=== PATIENT | female | born 1975 | race Caucasian/White ===

== ENCOUNTER 2018-08-08 09:40 | Emergency (ER) | payer SELFPAY ==
[2018-08-08 09:46] VITALS: BP 134/90
[2018-08-08 10:42] LABS: PLATELET COUNT 317 10^3/uL (150-400)
--- NOTE | 2018-08-08 10:44 | EDPHY ---
General - History Smoking Status: Current every day smoker Time Seen by Provider: 08/08/18 10:17 Narrative: CHIEF COMPLAINT: Depressed, suicidal HISTORY OF PRESENT ILLNESS: Patient presents voluntarily with complaints of depression and feeling suicidal. She says over the past few weeks she has had increasing depression. Over the past 2 days she has felt suicidal. She has a plan of laying down on the train track, and leading a training run over her head. She expresses intent to do so. She is currently homeless. She states that this does not affect her thoughts, and that she has not yet because of that. She says that she is traveling to [place] and for personal reasons has become very depressed. She reports history of schizoaffective disorder and denies any medication for this. She reports previous suicide attempt in 2008 by aspirin overdose. She denies any attempt today. She denies any ingestion of alcohol or methamphetamine. She does report going to outside hospital last night with same complaint, and she reports they discharged her home with outpatient resources. No other associated complaints or modifying factors. PSYCHIATRIC DIAGNOSES: Schizoaffective PRIOR PSYCHIATRIC EVALUATIONS: Two thousand nine in [place] M1/DETAINER: 10:[address] Hampton REVIEW OF SYSTEMS: Ten systems reviewed and are negative unless otherwise noted in the HPI EXAMINATION General Appearance: Alert, no distress. Unkempt. Head: normocephalic, atraumatic Eyes: Pupils equal and round, no conjunctival pallor or injection ENT, Mouth: Mucous membranes moist Neck: Normal inspection, supple, non-tender Respiratory: Lungs are clear to auscultation Cardiovascular: Regular rate and rhythm Gastrointestinal: Abdomen is soft and nontender Back: non-tender, no bony abnormalities Neurological: A&O, nonfocal, normal gait Skin: Warm and dry. Superficial candidal type rash underneath bilateral breast. This was examined with female gold tooler (Silvia) at bedside. Extremities: Nontender, no pedal edema Psychiatric: Depressed mood and flat affect. Admits to suicidal ideation with a plan of letting a train when overhead. Denies substance abuse. Does use marijuana. DIFFERENTIAL DIAGNOSES: Including but not limited to suicidal ideation, depression, schizoaffective, schizophrenia, malingering MDM: 10:20 a.m. Depression with suicidal ideation with plan of "put my heads on the track and let a training run over my head." She does express intent to do so. She reports previous suicide attempt in 2008. She denies any methamphetamine or alcohol use recently. She is awake alert. No acute distress. She has been placed on an M1 hold. Cooperative thus far. 10:45 a.m. Notified by RN. Patient is also complaining of rash underneath both breasts. I have re-evaluated her with female gold tooler. There is evidence of candidiasis underneath each breast without any cellulitis, breakdown or abscess. 11:10 a.m. Patient is medically cleared at this time. Proceed with mental health evaluation. 1:00 p.m. Patient has been cleared and evaluated by mental health professionals. They recommend that she be discharged outpatient follow-up. They have a high concern for malingering. I do feel that she is reasonable for discharge, as does the attending physician Dr. Hampton. She will be discharged with outpatient resources, fdc resources and ED precautions. She is comfortable this plan and discharged home stable condition. SUPERVISION: Patient was independently examined, but I discussed the case with my secondary supervising physician Dr. Hampton ([facility]) - Objective Vital Signs: Initial Vital Signs Temperature (C) 97.7 F 08/08/18 09:42 Heart Rate 106 H 08/08/18 09:42 Respiratory Rate 16 08/08/18 09:42 Blood Pressure 134/90 H 08/08/18 09:42 O2 Sat (%) 93 08/08/18 09:42 O2 Delivery Mode Room Air Allergies/Adverse Reactions: No Known Allergies Allergy (Unverified 08/08/18 09:41) Home Medications: Medication Instructions Recorded NK [No Known Home Meds] 08/08/18 Laboratory Results: Laboratory Results 08/08/18 10:29 08/08/18 10:29 Medications Given: Discontinued Medications Nystatin (Mycostatin Oint 15gm) 1 latasha TP BID DAVID Stop: 09/07/18 11:14 Last Admin: 08/08/18 11:29 Dose: 1 latasha Departure - Departure Disposition: Home, Routine, Self-Care Clinical Impression: Passive suicidal ideations, Homeless Condition: Fair Referrals: [facility],. [Clinic] - As per Instructions [facility],. [Clinic] - As per Instructions
[2018-08-08] MEDS ORDERED: NYSTATIN 15 GM OINTMENT TP SCH (11:15)
--- NOTE | 2018-08-08 12:54 | ASMTTLCEVL ---
TLC Evaluation - Basic Information Evaluation Start Date and 08/08/2018 11:10 AM Time Hospital Status Answers: M1 Hold 72-hr M1 Hold Start Date 08/08/2018 10:18 AM and Time Patient statement Notes: I took a bus here from [place] yesterday. I slept outside last night. Narrative Notes: Pt is a 42 yo, , transient/homeless, unemployed and disabled female with reported past psychiatric history of schizoaffective disorder-bipolar type, initially self-presented to [facility] ED on a voluntary basis with chief complaint of feeling depressed for the past couple of weeks, having suicidal ideation over the past 2 days and considered plan of letting a train run over my head. Pt was placed on an M1 hold by ED provider which noted: Patient exhibits depressed mood, flat affect, and she admits suicidal ideation with plan to let a train run over my head. Reports previous suicide attempt in 2008. Pt reported leaving [place], [place] about 3 weeks ago via bus with plans to consider moving permanently to [place], [place]. She reported being in [place] for about 2 weeks then decided to take a bus back home to [place], [place]. She reported being in [place] for a couple of days. When pt arrived in the ED, she still had a patient wrist band from another hospital in [place] where she went seeking help for feelings of depression and medications. She was released from that hospital. She reported taking a bus to [place] yesterday and slept outside last night. Pt stated that her final travel destination plans were to take a bus back to [place], [place] where her parents reside and pt previously had resided. Pt stated she is on SSI income and is awaiting her SSI check. Pt stated not having current funds for bus fare back to [place], [place] but planned to phone her mother to try to make wire transfer arrangement of bus fare funds. Pt appeared unclean, disheveled and unkempt. She had tattoos on both arms. She appeared moderately obese. She was alert and oriented X 4. She denied any auditory/visual hallucinations or delusions. Her mood appeared sad/depressed due to having exhausted her financial resources to continue her bus trip back to [place], [place]. She appeared to have over-exaggerated her response on the Hardy questionnaires, scoring a maximum on the BDI and near maximum on the BSS. Diagnosis History Notes: By pt report, Schizoaffective disorder-bipolar type. Prior suicide attempts Notes: Pt reported history of one prior suicide attempt in 2008 in which she took an overdose of aspirin. Prior hospitalizations Notes: Pt reported being hospitalized at [facility] in [place], [place] following her suicide attempt. Treatment Responses Notes: Pt reported not being on any medications in a long time. History of violence Notes: Pt denied any past history of aggression/violence. Therapist: None. Psychiatrist: None. Medications (name, dosage, route, freq uency) Notes: None. Pt reported not being on any medications in a long time. Allergies/Reaction Notes: NKDA. Sleep Notes: Decreased sleep reported. Appetite Notes: WNL. Pt appeared moderately obese. Medical/Surgical history Notes: Noncontributory other than ED provider report of pt complaint of rash under her breasts and evidence of candidiasis underneath each breast without any cellulitis, breakdown or abscess. Substance use history (frequency, intensity, his tory, duration) Notes: Pt reported having first tried alcohol at age 14. She reported she typically will consume alcohol on a weekly basis, usually 4 glasses of wine. She reported last having alcohol yesterday and drank some Vodka last night. She reported she first tried marijuana at age 20. She reported she rarely smokes marijuana and may use it monthly, with last reported use being yesterday evening. She reported past history of use of cocaine, meth, heroin, LSD, and Ecstacy but denied any use of any of these substances in over 10 years. BAL was zero. UDS results negative for all tested substances. Family composition Notes: Pt reported that her parents are and reside in [place], [place]. She has a 38 yo brother and a 39 yo sister also living in [place]. Need for family Answers: No participation in patient's care Family psychiatric/substance abuse history Notes: Pt denied any family history of mental illness/substance abuse problems. She denied any family history of suicide attempts/completions. Developmental history Notes: Pt reported being born in [place], [place] and grew up in several locations due to father being in the . She reported moving from [place] to [place], then to [facility], then to [place], then to [place], [place], then to [place], [place]. She denied having any learning challenges during childhood. She denied any childhood history of TBIs, LOC or concussions. She denied any childhood history of physical, emotional or sexual abuse/trauma. Abuse concerns Answers: None Marital status/children Notes: Pt reported having been for two years from 1999 to 2001, then . She reported she has an 18 yo daughter that pts parents raised. Living situation Notes: Pt has primary residence back in [place], [place]. She is transient, currently in [place] for past couple of days, was seen at another [facility] and released, then took a bus to [place] yesterday. Sexual history/orientation Notes: Not active. Heterosexual. Peer support/family strengths Notes: No local supports. Education level/history Notes: Pt reported graduating from high school and attended one semester at [employer] in [place], [place] in 1993. Work history Notes: Pt is on [employer] disability income. Notes: None. Legal Notes: Pt denied any history of arrests/legal problems. Advent/Spiritual Notes: Pt reported she believes/attends [employer]. Leisure Notes: None identified. Collateral Notes: No emergency contact information provided by pt. Patient's strengths Answers: Supportive Family (Please select at least TWO strengths): Willingness TLC Evaluation - Mental Status Exam Appearance: Answers: Inappropriate Unclean Unkempt Disheveled Eye Contact: Answers: Intermittent Mood: Answers: Sad Affect: Answers: Blunted Calm Congruent w/ Mood Flat Sad Subdued Behavior: Answers: Cooperative Fatigued Manipulative Passive Speech: Answers: Relevant Logical Clear Coherent Soft Thought Process: Answers: Organized Oriented Alert Goal Oriented Intact Insight: Answers: Fair Judgement: Answers: Fair Depression Answers: Flat Affect Signs/Symptoms: Psychomotor Retardation Sad Mood Hallucinations: Answers: None Current Stage of Change Answers: Precontemplation Pt reported to have Answers: Yes suicidal/self-injuring ideation/behavior? Pt reported to be making Answers: Yes suicidal/self-injuring threats? Pt reported to have Answers: No aggression/assault ideation/behavior? Pt reported to be making Answers: No aggression/assault threats? Pt exhibits inability to Answers: No care for self/grave disability? Ideation/behavior is Answers: No chronic? Patient has a specific Answers: Yes plan? Pt has access to means to Answers: No execute the plan? Ideation involves Answers: No serious/lethal intent? Ideation has Answers: No delusional/hallucinatory content? History of Answers: Yes suicidal/self-injuring ideation, behavior, or threats? History of Answers: No aggressive/assaultive ideation, behavior, or threats? History of serious Answers: No physical harm to self/others while in treatment setting? TLC Evaluation - Suicide/Homicide Risk Suicide Risk Factors: Answers: < 20 or > 40 Years of Age Anhedonia Cluster "B" D/O or Traits Financial Difficulties Flat Affect Inadequate Social Support Lack of Social Support Lack/Loss of Employment Prior Suicide Attempt(s) Schizoaffective Disorder Unstable Living Situation Homicide/violence risk Answers: None factors: Current Suicidal Answers: Yes Ideation? Current Suicide Ideation Past 2 days. Seen in [facility] yesterday and Frequency: was released. Current Suicidal Ideation Answers: Yes in the Past 48 Hours? Current Suicidal Ideation Answers: No in the Past Month? Current Suicidal Answers: No Ideation, Worst Ever? Suicide Internal Answers: Absence of Psychosis Protective Factors: Advent Beliefs Suicide External Answers: Responsibility to Protective Factors: Children Ranking of patient's Answers: Low suicidal risk: Ranking of patient's Answers: Low homicidal risk: TLC Evaluation - Wrap-up BDI Total Score: 63 BDI Question #2 Score: 3 BDI Question #9 Score: 3 BSS Total Score: 38 AXIS I Diagnosis (include DSM-V and ICD-10 codes), must also be entered in [employer], which is the source of truth. Notes: Malingering V65.2 (Z76.5) Schizoaffective Disorder, Bipolar Type 295.70 (F25.0) by history In consultation with [facility] ED physician, Radu Hampton MD, and on-call psychiatrist, Radu Hampton MD, concurred that pt does not appear to meet 27-65 criteria requiring psychiatric hospitalization as pt does not appear to be an imminent risk of harm to self/others/gravely disabled due to a mental illness condition. Dr. Hampton provided verbal order read back vacating M1 hold at 1150 hrs. Evaluation End Date and 08/08/2018 12:50 PM Time (HH:MM): Date Signed: 08/08/2018 12:53 PM Electronically Signed By:Scottie Ozuna
--- NOTE | 2018-08-08 12:55 | ASMTTCLDSP ---
TLC Discharge Disposition Disposition: Answers: Discharge If Answers: Yes DISCHARGED: Patient/family given suicide hotline info & SAMHSA brochure? Disposition Notes: Notes: Pt appeared to be long-term seeking, over-endorsed symptoms in scoring the maximum on the BDI, appeared to be seeking secondary gain by being in the hospital, and stated plan of self-harm appeared not credible and unlikely. Pt was future focused, wanting to get back to [place], [place] and plans to call her mother from the ED to make arrangements for mother to wire her bus [employer] funds. Pt was given local hotline information and SAMHSA brochure After an Attempt. Discharge Concerns/Recommendations: Notes: In consultation with [facility] ED physician, Radu Hampton MD, and on-call psychiatrist, Radu Hampton MD, concurred that pt does not appear to meet 27-65 criteria requiring psychiatric hospitalization as pt does not appear to be an imminent risk of harm to self/others/gravely disabled due to a mental illness condition. Dr. Hampton provided verbal order read back vacating M1 hold at 1150 hrs. Was patient given the Answers: Not applicable Inpatient Behavioral Health Prohibited Belongings List while in the ED? Psychiatrist vacating M1 Radu Perea MD Hold: Date and time M1 hold 08/08/2018 11:50 AM vacated (time format is hh:mm): Type of Hold: Answers: M1/72-hour Hold Hold initiated by: Answers: ED Physician Date Signed: 08/08/2018 12:54 PM Electronically Signed By:Scottie Ozuna
[2018-08-08] MEDS ORDERED: NYSTATIN POWDER 15 GM BTL TP SCH (16:00)
--- NOTE | 2018-08-09 16:39 | ASMTCMCOM ---
CM Note CM Note Notes: Requested to provide a bus pass to the patient. Spoke w/pt and asked where she is planning on going. Pt stated "to [facility] so I can get [facility]." This CM informed pt that a bus pass would not be provided based on that plan and that since pt is ambulatory and the weather is warm and dry, patient can walk if she is planning to only go to another hospital. Then patient stated "I want to go to the [facility]. I need to follow up with my onsite case manager." This CM eventually did provide a bus pass so pt could get to but informed pt that she would not get a bus pass in the future unless circumstances are different. Pt verbalized understanding. Pt attempted to take a kleenex box, hospital blanket, a handful of masks, etc. before leaving the ED. Pt encouraged to follow up with [facility]. Date Signed: 08/09/2018 04:38 PM Electronically Signed By:Shira Mejia RN
== END 2018-08-08 12:22 | disposition home or self-care (01) ==
DX: R45.851 Suicidal ideations (principal); F32.9 Major depressive disorder, single episode, unspecified; Z59.0 Homelessness; F17.200 Nicotine dependence, unspecified, uncomplicated
CPT/HCPCS: 80305; G0480